=== PATIENT | female | born 1960 | race Caucasian/White ===

== ENCOUNTER 2023-10-07 07:27 | Day surgery (SDC) | payer OTHER ==
[2023-10-07] VITALS (10 sets, daily range): BP systolic 128–172; BP diastolic 64–81
[~2023-10-07] VITALS: Ht 157.5 cm; Wt 123.0 kg
[~2023-10-07 07:27] MED LIST: ATOR40TA PO; EUTHYROX175 MCG PO; FERSU300 PO; METF500 PO; MULVITA PO
[2023-10-07] MEDS ORDERED: CeFAZolin Sodium 3,000 MG in NS 100 ML IV SCH (08:15)
[2023-10-07] MEDS ORDERED: Lactated Ringer's 1,000 ML IV SCH (08:15)
[2023-10-07] MEDS ORDERED: Bupivacaine 0.5% HCl 5 MG/ML 30MLVIAL ONE (08:33)
[2023-10-07] MEDS ORDERED: Methylene Blue 1% 100 MG/10 ML VIAL ONE (08:33)
--- NOTE | 2023-10-07 08:36 | NUR ---
AMBULATE TO [facility] FROM RADIOLOGY, NPO SINCE OR, CONFIRMED SURGERY AND SURGEON. PRE OP TEACHING DONE, AT BEDSIDE
[2023-10-07] MEDS ORDERED: FentaNYL Citrate 50 MCG/ML 2 ML Injection ONE ×2 (08:54→10:50)
[2023-10-07] MEDS ORDERED: propofoL 20 ML IV ONE (08:54)
[2023-10-07] MEDS ORDERED: Midazolam HCl 1MG / ML 2ML Vial ONE (08:55)
[2023-10-07] MEDS ORDERED: Ondansetron HCl 2 MG / ML 2ML Vial ONE (08:56)
[2023-10-07] MEDS ORDERED: Ketorolac Tromethamine 30mg Vial ONE (08:56)
--- NOTE | 2023-10-07 09:51 | NUR ---
10/07/[address] 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
[2023-10-07] MEDS ORDERED: HYDROcodone 5-APAP 325 TAB PO PRN (10:45)
--- NOTE | 2023-10-07 11:09 | NUR ---
REPORT RECEIVED FROM DANIEL GRANADOS. VSS. PT ON RA. PT ABLE TO REPOSITION SELF IN BED. PT REQUESTING PO FOOD AND FLUIDS AND TOLERATING THEM WELL. PT REPORTS 5/10 ACHING PAIN TO LEFT BREAST THAT IS TOLERABLE. PT DENIES NAUSEA OR OTHER DISCOMFORTS. PT HAS INCISION TO LEFT BREAST DRESSED WITH EXOFEN AND GAUZE THAT IS C/D/I WITHOUT DRAINAGE, REDNESS, OR SWELLING. PT ALSO HAS BREAST BINDER IN PLACE.
--- NOTE | 2023-10-07 11:40 | NUR ---
Patient up to Ambulate independently. Gait steady. VSS AND CONSISTENT WITH PT BASELINE. PT HAS NO COMPLAINTS AND VERBALIZES READINESS TO GO HOME. Discharge instructions reviewed with patient. Patient verbalizes understanding. Copy given to patient to take home. Dressing to procedure site clean, dry, intact with no visible drainage, swelling, erythema or bruising noted. Patient States Post-Procedure ride home has been arranged. Discharged via wheelchair to private car for ride home. PT BELONGINGS RETURNED TO PT.
== END 2023-10-07 11:43 | disposition home or self-care (01) ==
LOC: ORSCMMR 07:27 → NM 07:27 → ORSCMMR 07:28 → NM 08:00
PROVIDERS: Surgery
PROC: 0HBU0ZZ Excision of Left Breast, Open Approach (ICD-10-PCS; principal; 2023-10-07 09:00)
PROC: 07B60ZX Excision of Left Axillary Lymphatic, Open Approach, Diagnostic (ICD-10-PCS; principal; 2023-10-07 09:00)
DX: C50.912 Malignant neoplasm of unspecified site of left female breast (principal); Z17.0 Estrogen receptor positive status [ER+]; D36.0 Benign neoplasm of lymph nodes; E78.5 Hyperlipidemia, unspecified; G47.33 Obstructive sleep apnea (adult) (pediatric); E11.9 Type 2 diabetes mellitus without complications; E66.01 Morbid (severe) obesity due to excess calories; Z68.42 Body mass index [BMI] 45.0-49.9, adult; Z79.84 Long term (current) use of oral hypoglycemic drugs; Z79.899 Other long term (current) drug therapy
CPT/HCPCS: 38792; 76098; 82947; 88305; 88307; 88342; A9520; J0690; J1885; J2250; J2405; J2704; J3010; J7120; Q9968

== ENCOUNTER 2024-03-16 07:10 | Day surgery (SDC) | payer OTHER ==
[~2024-03-16] VITALS: Ht 157 cm; Wt 115.8 kg
[2024-03-16] VITALS (11 sets, daily range): BP systolic 139–160; BP diastolic 58–76
[~2024-03-16 07:10] MED LIST changes: +FARXIGA5 MG PO
[2024-03-16] MEDS ORDERED: Lactated Ringer's 1,000 ML IV SCH (07:45)
[2024-03-16] MEDS ORDERED: Ampicillin Sod/Sulbactam Sod 3 GM in NS 100 ML IV SCH (07:45)
[2024-03-16] MEDS ORDERED: VITAMIN D32000 UNI1 PO (08:52)
[2024-03-16] MEDS ORDERED: propofoL 20 ML IV ONE (09:18)
[2024-03-16] MEDS ORDERED: FentaNYL Citrate 50 MCG/ML 2 ML Injection ONE (09:19)
[2024-03-16] MEDS ORDERED: Midazolam HCl 1MG / ML 2ML Vial ONE (09:19)
--- NOTE | 2024-03-16 09:32 | NUR ---
History, Chart, Medications and Allergies reviewed before start of procedure. Patient up to Ambulate independently. Gait steady. Pre-Op teaching done. Pt verbalizes understanding. Patient confirms NPO status and agrees with scheduled surgery. Patient states colon prep results yellow, cloudy with sediment. MD notified; okay to proceed. Patient States Post-Procedure ride home has been arranged.
--- NOTE | 2024-03-16 09:33 | NUR ---
03/16/24 0933 Geena Hunt INTO OR 2. ECG, SPO2, BP CUFF APPLIED. DR. BECKETT TO INTUBATED PRIOR TO COLONOSCOPY UNDER GENERAL ANESTHESIA-SEE ANESTHESIA RECORD.
[2024-03-16] MEDS ORDERED: Bupivacaine 0.5% HCl 5 MG/ML 30MLVIAL ONE (10:10)
[2024-03-16] MEDS ORDERED: Dexamethasone Sod Phos 10 MG/ML 1ML VIAL ONE (10:13)
[2024-03-16] MEDS ORDERED: Ondansetron HCl 2 MG / ML 2ML Vial ONE (10:13)
[2024-03-16] MEDS ORDERED: OxyCODONE 5 mg/Acetamin 325 mg TABLET PO PRN (10:55)
--- NOTE | 2024-03-16 11:53 | NUR ---
1120 REPORT RECEIVED FROM DIANE GRANADOS. VSS. PT ON RA. PT A&OX4. PT ABLE TO REPOSITION SELF IN BED. PT TOLERATING PO FLUIDS. PT DENIES PAIN, NAUSEA OR OTHER DISCOMFORTS. PT VERBALIZES NEEDING TO USE RESTROOM. PT ABLE TO AMBULATE INDEPENDENTLY TO BR AND VOID SUCCESSFULLY. PT HAS GAUZE PACKING TO BUTTOCKS AND MESH UNDERWEAR IN PLACE. NO DRAINAGE NOTED.
--- NOTE | 2024-03-16 11:56 | NUR ---
1145 Patient up to Ambulate independently. Gait steady. VSS AND CONSISTENT WITH PT BASELINE. PT HAS NO COMPLAINTS AND VERBALIZES READINESS TO GO HOME. Discharge instructions reviewed with patient AND HER SPOUSE. Patient verbalizes understanding. Copy given to patient to take home. Dressing to procedure site clean, dry, intact with no visible drainage, swelling, erythema or bruising noted. Discharged via wheelchair to private car for ride home. PT BELONGINGS RETURNED TO PT.
== END 2024-03-16 11:50 | disposition home or self-care (01) ==
LOC: ORSCMMR 07:10 → ORD 09:00 → ORSCMMR 11:50
PROVIDERS: Surgery
PROC: 0DBL8ZX Excision of Transverse Colon, Via Natural or Artificial Opening Endoscopic, Diagnostic (ICD-10-PCS; principal; 2024-03-16 09:00)
PROC: 0DBK8ZX Excision of Ascending Colon, Via Natural or Artificial Opening Endoscopic, Diagnostic (ICD-10-PCS; principal; 2024-03-16 09:00)
PROC: 0DBN8ZX Excision of Sigmoid Colon, Via Natural or Artificial Opening Endoscopic, Diagnostic (ICD-10-PCS; principal; 2024-03-16 09:00)
PROC: 06BY0ZC Excision of Hemorrhoidal Plexus, Open Approach (ICD-10-PCS; principal; 2024-03-16 09:00)
DX: K64.2 Third degree hemorrhoids (principal); N81.6 Rectocele; D12.2 Benign neoplasm of ascending colon; D12.3 Benign neoplasm of transverse colon; K63.5 Polyp of colon; K57.30 Diverticulosis of large intestine without perforation or abscess without bleeding; G47.33 Obstructive sleep apnea (adult) (pediatric); E11.9 Type 2 diabetes mellitus without complications; E03.9 Hypothyroidism, unspecified; Z79.84 Long term (current) use of oral hypoglycemic drugs; Z79.899 Other long term (current) drug therapy; E78.00 Pure hypercholesterolemia, unspecified; E66.01 Morbid (severe) obesity due to excess calories; Z68.42 Body mass index [BMI] 45.0-49.9, adult
CPT/HCPCS: 82947; 88304; 88305; J0295; J1100; J2250; J2405; J2704; J3010; J7120

== ENCOUNTER → 2024-04-09 | Outpatient (CLI) | payer OTHER ==
[~2024-04-09] MED LIST changes: +VITAMIN D32000 UNI1 PO
[2024-04-09 13:07] LABS: BASOPHILS ABSOLUTE AUTO 0.04 K/mm3 (0.00-0.23); BASOPHILS PERCENT AUTO 1 % (0-2); EOSINOPHILS ABSOLUTE AUTO 0.14 K/mm3 (0.00-0.68); EOSINOPHILS PERCENT AUTO 2 % (0-6); Hematocrit 39.4 % (33.0-51.0); Hemoglobin 12.4 g/dL (11.5-16.0); IMMATURE GRAN ABSOLUTE AUTO 0.04 K/mm3 (0.00-0.10); IMMATURE GRAN PERCENT AUTO 1 % (0-1); LYMPHOCYTES ABSOLUTE AUTO 1.11 K/mm3 (0.84-5.20); LYMPHOCYTES PERCENT AUTO 17 % (21-46); MONOCYTES ABSOLUTE AUTO 0.34 K/mm3 (0.16-1.47); MONOCYTES PERCENT AUTO 5 % (4-13); Mean Corpuscular HGB 26.1 pg (26.0-34.0); Mean Corpuscular HGB Conc 31.5 g/dL (31.5-36.5); Mean Corpuscular Volume 83 fL (80-100); Mean Platelet Volume 9.8 fL (9.1-12.4); NEUTROPHILS PERCENT AUTO 75 % (41-73); Platelet Count 234 K/mm3 (150-400); RDW Coefficient Variation 15.4 % (11.7-14.2); RDW Standard Deviation 46.1 fL (35.1-46.3); Red Blood Cell Count 4.76 M/mm3 (3.80-5.20); White Blood Cell Count 6.67 K/mm3 (4.00-11.30)
[2024-04-09 16:58] LABS: Alanine Aminotransfer (ALT/SGP 28 U/L (12-78); Albumin, Blood 3.7 g/dL (3.4-5.0); Albumin/Globulin Ratio 0.9 (0.8-1.8); Alk Phos 137 U/L (50-136); Anion Gap 9 mmol/L (3-11); Aspartate Aminotrans (AST/SGOT 15 U/L (12-37); Bilirubin, Total 0.5 mg/dL (0.1-1.0); Blood Urea Nitrogen 12 mg/dL (8-24); CHOL/HDL RATIO 3.4; CO2, Blood 26 mmol/L (21-32); Calcium, Blood 9.6 mg/dL (8.5-10.1); Chloride, Blood 106 mmol/L (98-108); Cholesterol 154 mg/dL (50-200); Globulin, Blood 3.9 g/dL (2.2-4.0); Glucose, Blood 150 mg/dL (70-99); HDL Cholesterol 45 mg/dL (>39); LDL/HDL RATIO 1.3; Low Density Lipoprotein Chol 59 mg/dL (0-110); Potassium, Blood 4.4 mmol/L (3.5-5.5); Sodium, Blood 137 mmol/L (136-145); Total Protein, Blood 7.6 g/dL (6.4-8.2); Triglycerides 248 mg/dL (30-160); Very Low Density Lipoprot Chol 49 mg/dL (6-32)
[2024-04-09 17:04] LABS: Bun/Creatinine Ratio 17.5 (12.0-20.0); Creatinine, Blood 0.69 mg/dL (0.40-1.00); Glomerular Filtration Rate 97 (60-); Thyroid Stimulating Hormone 0.905 uIU/mL (0.360-4.800)
== END | disposition home or self-care (01) ==
LOC: LAB 09:00 → LAB SHORT 09:00
PROVIDERS: Family Medicine
DX: E11.9 Type 2 diabetes mellitus without complications (principal); E03.4 Atrophy of thyroid (acquired); E55.9 Vitamin D deficiency, unspecified
CPT/HCPCS: 80053; 80061; 82306; 84443; 85025

== ENCOUNTER 2024-08-13 05:45 | Emergency (ER) | payer OTHER ==
[~2024-08-13] VITALS: Ht 157.5 cm; Wt 113.8 kg
[2024-08-13] MEDS ORDERED: Cephalexin Monohydrate 500 MG Cap PO ONE (07:00)
[2024-08-13 07:34] VITALS: BP 143/63
[2024-08-13] MEDS ORDERED: CEPH500 PO (07:35)
[2024-08-13] MEDS ORDERED: STEGLATRO5 MG PO (07:36)
== END 2024-08-13 07:43 | disposition home or self-care (01) ==
LOC: ER 05:45
DX: N61.0 Mastitis without abscess (principal); E11.9 Type 2 diabetes mellitus without complications; E78.5 Hyperlipidemia, unspecified; Z79.84 Long term (current) use of oral hypoglycemic drugs; Z79.899 Other long term (current) drug therapy
CPT/HCPCS: 82947; 99283; A9270

== ENCOUNTER → 2025-05-06 | Outpatient (CLI) | payer OTHER ==
[~2025-05-06] MED LIST changes: +CEPH500 PO; +STEGLATRO5 MG PO
[2025-05-06 13:48] LABS: Thyroid Stimulating Hormone 0.260 uIU/mL (0.360-4.800); Very Low Density Lipoprot Chol 48 mg/dL (6-32)
[2025-05-06 13:49] LABS: CHOL/HDL RATIO 3.8; Cholesterol 153 mg/dL (50-200); HDL Cholesterol 40 mg/dL (>39); LDL/HDL RATIO 1.6; Low Density Lipoprotein Chol 65 mg/dL (0-110); Triglycerides 242 mg/dL (30-160)
== END ==
LOC: LAB 08:40 → LAB SHORT 08:40
PROVIDERS: Family Medicine
DX: E11.9 Type 2 diabetes mellitus without complications (principal); E03.4 Atrophy of thyroid (acquired); E78.2 Mixed hyperlipidemia
CPT/HCPCS: 80061; 83036; 84443